=== PATIENT | female | born 1945 | race Caucasian/White ===

== ENCOUNTER 2017-10-06 13:19 | Outpatient (CLI) | payer MEDICARE, BC ==
[2017-10-06 18:10] LABS: CALCIUM 8.9 mg/dL (8.5-10.3); CREATININE 0.7 mg/dL (0.4-1.0)
== END 2017-10-06 13:20 | disposition home or self-care (01) ==
LOC: LAB.F 13:19
PROVIDERS: ATTEND Family Medicine
DX: E87.6 Hypokalemia (principal)
CPT/HCPCS: 36415; 80048

== ENCOUNTER 2022-08-08 12:42 | Emergency (ER) | payer MEDICARE, BC ==
[2022-08-08] MEDS ORDERED: MECLIZINE 12.5 MG TABLET PO STA (14:15)
[2022-08-08 14:17] LABS: BASOPHILS % (AUTO) 0.4 %; EOSINOPHILS # (AUTO) 0.5 10^3/uL (0.0-0.7); HGB - HEMOGLOBIN 13.5 g/dL (12.0-16.0); LYMPHOCYTES # (AUTO) 1.7 10^3/uL (1.5-3.5); LYMPHOCYTES % (AUTO) 16.4 %; MEAN CORPUSCULAR HEMOGLOBIN 28.7 pg (27.0-31.0); MEAN CORPUSCULAR HGB CONC 31.4 g/dL (32.0-36.0); MEAN CORPUSCULAR VOLUME 91.3 fL (81.0-99.0); MEAN PLATELET VOLUME 9.3 fL (7.9-10.8); MONOCYTES # (AUTO) 0.7 10^3/uL (0.0-1.0); MONOCYTES % (AUTO) 6.5 %; NEUTROPHILS # (AUTO) 7.3 10^3/uL (1.5-6.6); NEUTROPHILS % (AUTO) 71.3 %; PLT - PLATELET COUNT 398 10^3/uL (130-450); RED BLOOD COUNT 4.71 10^6/uL (4.20-5.40); RED CELL DISTRIBUTION WIDTH 13.8 % (12.0-15.0); WHITE BLOOD COUNT 10.3 x10^3/uL (4.8-10.8)
--- NOTE | 2022-08-08 14:17 | ED Physician Documentation ---
History of Present Illness - Stated complaint Stated Complaint: DIZZY, LIGHTHEADED - Chief complaint Chief Complaint: Neuro - History obtained from History obtained from: Patient - Additonal information Additional information: 77-year-old woman with hypertension and hypercholesterolemia presents with vertigo. It started early yesterday and is much better today. Today she feels more lightheaded. It is worse with rotation of the head. She had never had vertigo before this. Today she only has vertigo if she rotates her head. She feels tingling In the fingers of both hands. PD PAST MEDICAL HISTORY - Present Medications Home Medications: Ambulatory Orders Medication Instructions Recorded Confirmed Meclizine HCl [Motion Sickness] 25 mg PO Q6H PRN #20 tablet 08/08/22 - Allergies Allergies/Adverse Reactions: Allergies Allergy/AdvReac Type Severity Reaction Status Date / Time Penicillins Allergy Hives Verified 08/08/22 13:26 povidone-iodine Allergy Rash Verified 08/08/22 13:26 [From Betadine] Sulfa (Sulfonamide Allergy Unknown Verified 08/08/22 13:26 Antibiotics) PD ED PE NORMAL - Vitals Vital signs reviewed: Yes - General General: Alert and oriented X 3, No acute distress - HEENT HEENT: PERRL, EOMI - Neck Neck: Supple, no meningeal sign, No bony TTP - Cardiac Cardiac: RRR, No murmur - Respiratory Respiratory: No respiratory distress, Clear bilaterally - Abdomen Abdomen: Non tender - Back Back: No CVA TTP, No spinal TTP - Derm Derm: Normal color, Warm and dry - Neuro Neuro: Alert and oriented X 3, 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 No nystagmus on my examination but she has no vertigo at this point in time. NIH stroke scale of 0.) Eye Opening: Spontaneous Motor: Obeys Commands Verbal: Oriented GCS Score: 15 Results - Vitals Vitals: Vital Signs - 24 hr 08/08/22 08/08/22 08/08/22 13:22 15:25 16:13 Temperature 36.5 C Heart Rate 78 72 80 Respiratory 18 20 15 Rate Blood Pressure 150/74 H 148/70 H 152/76 H O2 Saturation 95 99 99 Oxygen O2 Source Room air - EKG (time done) 1453 Rate: Rate (enter#) (70) Rhythm: NSR Savannah: LAD (borderline) Intervals: Normal MS QRS: Normal Ischemia: Non specific changes. No: ST elevation c/w ischemia, ST depression - Labs Labs: Laboratory Tests 08/08/22 08/08/22 08/08/22 14:01 14:01 14:01 WBC 10.3 RBC 4.71 Hgb 13.5 Hct 43.0 MCV 91.3 MCH 28.7 MCHC 31.4 L RDW 13.8 Plt Count 398 MPV 9.3 Neut # (Auto) 7.3 H Lymph # (Auto) 1.7 Howard # (Auto) 0.7 Eos # (Auto) 0.5 Baso # (Auto) 0.0 Absolute Nucleated RBC 0.00 Nucleated RBC % 0.0 VBG pH 7.406 VBG pCO2 46.8 VBG pO2 25.7 VBG HCO3 28.7 H VBG Total CO2 30.2 H VBG O2 Saturation 48.3 L VBG Base Excess 3.3 H Sodium 135 Potassium 3.6 Chloride 96 L Carbon Dioxide 29 Anion Gap 10.0 BUN 18 Creatinine 0.7 Estimated GFR (MDRD) 82 L Glucose 109 H Calcium 9.5 Total Bilirubin 0.9 AST 21 ALT 23 Alkaline Phosphatase 106 Total Protein 7.4 Albumin 4.1 Globulin 3.3 Albumin/Globulin Ratio 1.2 Lipase 48 - Rads (name of study) CT Head- NAD Radiology: Final report received, EMP read indepedently PD Medical Decision Making - ED course ED course: 77-year-old woman with apparently peripheral vertigo although she does have risk factors for CVA. That said there is no clinical evidence of CVA. CT of the head is unremarkable. After the administration of meclizine she felt better. CBC reviewed and normal. Venous blood gas reviewed and normal. CMP reviewed and normal. Departure - Departure Disposition: Home, Self Care Clinical Impression: Vertigo Condition: Good Record reviewed to determine appropriate education?: Yes Instructions: Meclizine, ED Vertigo Unspecified Prescriptions: Meclizine HCl [Motion Sickness] 25 mg PO Q6H PRN #20 tablet PRN Reason: Dizziness Comments: Call your doctor to arrange a follow-up appointment, make the next available appointment. In the interim, return anytime if worse or if new symptoms develop. Discharge Date/Time: 08/08/22 16:14
[2022-08-08 14:20] LABS: VBG PCO2 46.8 mmHg (41-51); VBG PH 7.406 (7.31-7.41); VBG PO2 25.7 mmHg (25-47)
[2022-08-08 14:21] LABS: VBG BASE EXCESS 3.3 mmol/L (-2 - +2); VBG HCO3 28.7 mmol/L (23-28); VBG OXYGEN SATURATION 48.3 % (60-80); VBG TOTAL CO2 30.2 mmol/L (24-29)
[2022-08-08 14:31] LABS: ALBUMIN 4.1 g/dL (3.2-5.5); ALBUMIN/GLOBULIN RATIO 1.2 (1.0-2.2); BILIRUBIN,TOTAL 0.9 mg/dL (0.2-1.0); CALCIUM 9.5 mg/dL (8.5-10.3); CREATININE 0.7 mg/dL (0.4-1.0); POTASSIUM 3.6 mmol/L (3.5-5.0); TOTAL PROTEIN 7.4 g/dL (6.7-8.2)
--- NOTE | 2022-08-08 15:49 | CT Report ---
PROCEDURE: HEAD WO INDICATIONS: vertigo TECHNIQUE: Noncontrast 4.5 mm thick angled axial sections acquired from the foramen magnum to the vertex. For r adiation dose reduction, the following was used: automated exposure control, adjustment of mA and/or kV according to patient size. COMPARISON: None. FINDINGS: Image quality: There is streak artifact seen through the skull base. CSF spaces: Basal cisterns are patent. No extra-axial fluid collections. Ventricles are normal in size and shape. Brain: No midline shift. No intracranial masses or hemorrhage. Carmichael-white matter interface is norm al. Skull and face: Calvarium and visualized facial bones are intact, without suspicious lesions. Sinuses: Visualized sinuses and mastoids are clear. Moderate rightward nasal septal deviation is in cidentally noted. IMPRESSION: Intracranial study within normal limits for age, without a cause of the patient's presen ting symptoms identified. Reviewed by: Pj Castañeda MD on 08/08/2022 2:47 PM [facility] Approved by: Pj Castañeda MD on 08/08/2022 2:47 PM [facility] Station ID: [id number]
[2022-08-08 16:14] VITALS: BP 152/76
== END 2022-08-08 16:14 | disposition home or self-care (01) ==
LOC: ED 12:42
DX: R42 Dizziness and giddiness (principal)
CPT/HCPCS: 36415; 70450; 80053; 82803; 83690; 85025; 93005; 99284; A9270

== ENCOUNTER 2022-12-24 08:23 | Outpatient (CLI) | payer MEDICARE, BC ==
--- NOTE | 2022-12-24 08:57 | XRAY Report ---
PROCEDURE: Knee 3 View RT INDICATIONS: RIGHT KNEE CONTUSION TECHNIQUE: 3 views of the right knee(s) were acquired. COMPARISON: None. FINDINGS: Bones: No fractures or dislocations. No suspicious bony lesions. Moderate to severe tricompartmen eron arthritic change most anteromedially Soft tissues: No knee joint effusion. No suspicious soft tissue calcifications or masses. IMPRESSION: Tricompartmental arthritic change. No visualized acute fracture or dislocation. However, occult injur y cannot be excluded. Recommend short interval imaging follow-up in 7-10 days as clinically indicated for additional evaluation. Femoral Reviewed by: Jana Joyner MD on 12/24/2022 8:56 AM PDT Approved by: Jana Joyner MD on 12/24/2022 8:56 AM PDT Station ID: [id number]
== END 2022-12-24 23:59 | disposition home or self-care (01) ==
LOC: DI.S 08:23
PROVIDERS: ATTEND Physician Assistant Medical
DX: M17.11 Unilateral primary osteoarthritis, right knee (principal)

== ENCOUNTER 2022-12-26 11:49 | Emergency (ER) | payer MEDICARE, BC ==
[2022-12-26 12:02] VITALS: BP 152/114
--- NOTE | 2022-12-26 12:17 | ED Physician Documentation ---
History of Present Illness - Stated complaint Stated Complaint: RT KNEE PX - Chief complaint Chief Complaint: Ext Problem - Additonal information Additional information: 77-year-old female presents to the emergency department for evaluation of" excruciating" knee pain. States that she has a known history of tricompartmental arthritis. On November 30 her orthopedic physician through the [facility] injected the knee with cortisol. She states that she was doing well until she had a ground-level fall onto the knee the last week of November. Since then she has been having increasing pain in the knee. She is also noticed some generalized swelling around the knee as well as some mild swelling and redness of the lower leg. She did go to a local walk-in clinic on 24 November. She had an x-ray completed that showed pretty significant tricompartmental arthritis. For concerns of the redness of the skin in the lower leg she was started on doxycycline. Patient reports that her pain is worse today and she is concerned she could have a blood clot. There have been no fevers. She is not anticoagulated. Review of Systems Constitutional: denies: Fever Cardiac: reports: Reviewed and negative Respiratory: reports: Reviewed and negative Musculoskeletal: reports: Joint pain, Joint swelling Neurologic: reports: Reviewed and negative PD PAST MEDICAL HISTORY - Present Medications Home Medications: Ambulatory Orders Medication Instructions Recorded Confirmed Meclizine HCl [Motion Sickness] 25 mg PO Q6H PRN #20 tablet 08/08/22 oxyCODONE [Roxicodone] 5 mg PO TID PRN #20 tablet 12/26/22 - Allergies Allergies/Adverse Reactions: Allergies Allergy/AdvReac Type Severity Reaction Status Date / Time Penicillins Allergy Hives Verified 08/08/22 13:26 povidone-iodine Allergy Rash Verified 08/08/22 13:26 [From Betadine] Sulfa (Sulfonamide Allergy Unknown Verified 08/08/22 13:26 Antibiotics) PD ED PE EXPANDED - General General: Alert, No acute distress - Extremities Extremities: Right knee (Mild swelling of the right knee with some superficial erythema. No palpable effusion. Erythema does extend slightly down the anterior leg. No posterior calf tenderness. 2+ DP pulse. Quite antalgic gait though no micromotion tenderness.) Results - Vitals Vitals: Vital Signs - 24 hr 12/26/22 11:56 Temperature 98.1 C H Heart Rate 97 Respiratory 16 Rate Blood Pressure 152/114 H O2 Saturation 97 Oxygen O2 Source Room air - Labs Labs: Laboratory Tests 12/26/22 12/26/22 12/26/22 12:22 12:22 12:22 WBC 7.8 RBC 3.96 L Hgb 11.5 L Hct 36.3 L MCV 91.7 MCH 29.0 MCHC 31.7 L RDW 13.9 Plt Count 428 MPV 8.7 Neut # (Auto) 5.4 Lymph # (Auto) 1.3 L Swift # (Auto) 0.7 Eos # (Auto) 0.3 Baso # (Auto) 0.0 Absolute Nucleated RBC 0.00 Nucleated RBC % 0.0 ESR 42 H Sodium 140 Potassium 3.5 Chloride 107 Carbon Dioxide 26 Anion Gap 7.0 BUN 17 Creatinine 0.6 Estimated GFR (MDRD) 97 Glucose 113 H Calcium 9.3 Total Bilirubin 0.5 AST 16 ALT 19 Alkaline Phosphatase 109 C-Reactive Protein 5.7 H Total Protein 6.8 Albumin 3.5 Globulin 3.3 Albumin/Globulin Ratio 1.1 Lipase 37 - Rads (name of study) US DVT Right leg Relevant Findings:: Final report received PD Medical Decision Making - ED course Complexity details: reviewed results, re-evaluated patient, d/w patient ED course: 77-year-old female presents emergency department for evaluation of right knee pain. She states that she has a history of severe arthritis in the knee and on November 30 she did have a cortisone injection in the knee by her orthopedic doctor. About 10 days later she had a fall directly on the knee and since then has been having increasing pain. She went to a local walk-in clinic 2 days ago because she developed some swelling around the knee as well as some very superficial redness of the knee and anterior leg. She was started on doxycycline. No improvement in pain. Here in the emergency department she does have an antalgic gait. However no micromotion tenderness in the joint is not stiff. Here in the ER she has no fevers. I did obtain a CBC, electrolytes CRP and sedimentation rate. Per my interpretation no leukocytosis. She does have a mild CRP and sedimentation rate elevation. I did query if this could be an infectious etiology. I did attempt arthrocentesis at the bedside but I was unsuccessful as the joint is quite arthritic. However subsequently I do not believe that she has an arthritic joint given the lack of leukocytosis or micromotion tenderness. Patient was concerned she could have a DVT in the leg and an ultrasound was performed that showed no evidence of deep vein thrombosis though she does have a popliteal cyst. Subsequently she is going to be discharged home. The recommendation is going to be to follow closely with her orthopedics doctor. Should her symptoms acutely worsen she will return to the emergency department. Departure - Departure Disposition: Home, Self Care Clinical Impression: Arthritis of right knee Condition: Serious Record reviewed to determine appropriate education?: Yes Prescriptions: oxyCODONE [Roxicodone] 5 mg PO TID PRN #20 tablet PRN Reason: Pain Comments: Sara you were seen today because you have been having increasing pain in your right knee. The ultrasound completed at the bedside does not show a DVT. You do have a cyst behind your knee, this is called to Goodson's cyst and is common. There is no specific treatment required for this and I do not believe that is contributing to your symptoms. The x-ray completed 2 days ago of your knee does show fairly severe arthritis. I did obtain labs today which showed a normal white blood cell count elevation. You do have an elevated CRP and sedimentation rate but this is often seen in a rthritis. We did attempt to do an arthrocentesis of the right knee but we were unable to get into the joint. This is a difficult procedure in the ER because of your severe arthritis. However I have lower suspicion that there is infection within the joint as you do not have fevers or white count elevation. You also do not have a stiff joint or any worrisome pain when passively moved. It is important you discuss this ED visit with your orthopedic doctor. I am sending a limited prescription for oxycodone and a pain medication to the [facility] in [place]. Please return to the ER if you have any severe swelling any fevers or worsening symptoms. I do recommend that you use a walker when getting around as that will help reduce the use of the knee and may improve pain. Discharge Date/Time: 12/26/22 14:08
[2022-12-26 12:30] LABS: BASOPHILS % (AUTO) 0.4 %; EOSINOPHILS # (AUTO) 0.3 10^3/uL (0.0-0.7); EOSINOPHILS % (AUTO) 4.3 %; HCT - HEMATOCRIT 36.3 % (37.0-47.0); HGB - HEMOGLOBIN 11.5 g/dL (12.0-16.0); LYMPHOCYTES # (AUTO) 1.3 10^3/uL (1.5-3.5); MEAN CORPUSCULAR HGB CONC 31.7 g/dL (32.0-36.0); MEAN CORPUSCULAR VOLUME 91.7 fL (81.0-99.0); MEAN PLATELET VOLUME 8.7 fL (7.9-10.8); MONOCYTES # (AUTO) 0.7 10^3/uL (0.0-1.0); MONOCYTES % (AUTO) 8.6 %; NEUTROPHILS # (AUTO) 5.4 10^3/uL (1.5-6.6); NEUTROPHILS % (AUTO) 69.3 %; PLT - PLATELET COUNT 428 10^3/uL (130-450); RED BLOOD COUNT 3.96 10^6/uL (4.20-5.40); RED CELL DISTRIBUTION WIDTH 13.9 % (12.0-15.0); WHITE BLOOD COUNT 7.8 x10^3/uL (4.8-10.8)
[2022-12-26 12:50] LABS: ALBUMIN 3.5 g/dL (3.2-5.5); ALBUMIN/GLOBULIN RATIO 1.1 (1.0-2.2); BILIRUBIN,TOTAL 0.5 mg/dL (0.2-1.0); CALCIUM 9.3 mg/dL (8.5-10.3); CREATININE 0.6 mg/dL (0.4-1.0); CRP - C-REACTIVE PROTEIN 5.7 mg/dL (0-1.0); POTASSIUM 3.5 mmol/L (3.5-5.0); TOTAL PROTEIN 6.8 g/dL (6.7-8.2)
[2022-12-26] MEDS ORDERED: lidocaine 1% 20 ML MDV SUBQ ONE (13:08)
--- NOTE | 2022-12-26 13:15 | Ultrasound Report ---
PROCEDURE: Duplex Ext Veins Right INDICATIONS: right leg swelling, knee swelling; ? DVT TECHNIQUE: Real-time imaging, as well as color and pulse Doppler interrogation, were performed of the lower extr emity deep veins from the inguinal ligament to the popliteal fossa. COMPARISON: None. FINDINGS: The deep veins are normally compressible, and free of intraluminal thrombus. Color and pu lse Doppler demonstrate normal phasic intraluminal flow. There is normal augmentation response to di stal compression maneuver. A Goodson's cyst is present in the right popliteal fossa measuring 3 cm. IMPRESSION: 1. No DVT in the right leg. 2. Goodson's cyst. Reviewed by: Rene Mcnulty on 12/26/2022 12:14 PM [facility] Approved by: Rene Mcnulty on 12/26/2022 12:14 PM [facility] Station ID: [id number]
[2022-12-26] MEDS ORDERED: oxyCODONE 5 MG TABLET PO STA (13:53)
== END 2022-12-26 14:08 | disposition home or self-care (01) ==
LOC: ED 11:49
DX: M17.11 Unilateral primary osteoarthritis, right knee (principal)
CPT/HCPCS: 20610; 36415; 80053; 83690; 85025; 85651; 86140; 93971; 99284; A9270

== ENCOUNTER 2023-01-26 11:59 | Outpatient (CLI) | payer MEDICARE, BC ==
--- NOTE | 2023-01-26 16:48 | Ultrasound Report ---
PROCEDURE: Ext Limited Non Vascular INDICATIONS: KNEE PAIN TECHNIQUE: Real-time scanning was performed of the right knee, with image documentation. COMPARISON: None. FINDINGS: There is a Goodson's cyst measuring 2.4 x 0.9 x 1.6 cm. IMPRESSION: Goodson's cyst. Reviewed by: Fior Barrera MD on 01/26/2023 4:47 PM PDT Approved by: Fior Barrera MD on 01/26/2023 4:47 PM PDT Station ID: [id number]
== END 2023-01-26 12:00 | disposition home or self-care (01) ==
LOC: DI 11:59
PROVIDERS: ATTEND Internal Medicine
DX: M71.21 Synovial cyst of popliteal space [Baker], right knee (principal); Z13.820 Encounter for screening for osteoporosis; Z78.0 Asymptomatic menopausal state

== ENCOUNTER 2023-01-26 12:00 | Outpatient (CLI) | payer MEDICARE, BC ==
--- NOTE | 2023-01-27 00:43 | DEXA Report ---
PROCEDURE: Dexa Spine and/or Hip INDICATIONS: POST MENOPAUSAL TECHNIQUE: Dual energy x-ray absorptiometry (DXA) was performed on a American Board [employer] Addiction Medicine (ABAM) System. Regions measur ed are the AP Spine, femoral neck, and if needed forearm. COMPARISON: None FINDINGS: Lumbar Spine: Bone Mineral Density 1.279 g/cm/cm,T score 0.8. Left Femoral Neck: Bone Mineral Density 0.886 g/cm/cm, T score -1.0. (T score greater or equal to -1.0: NORMAL) (T score from -1.1 to -2.4: OSTEOPENIA) (T score less than or equal to -2.5 to: OSTEOPOROSIS) Impression: By WHO criteria, this patient has normal bone density. Patients with diagnosis of osteoporosis or osteopenia should have regular bone mineral density assess ment. For those eligible for Medicare, routine testing is allowed once every 2 years. Testing frequ ency can be increased for patients who have rapidly progressing disease or for those who are receivin g medical therapy to restore bone mass. Reviewed by: Lorrie Alfred MD on 01/27/2023 12:42 AM PDT Approved by: Lorrie Alfred MD on 01/27/2023 12:42 AM PDT Station ID: [id number]
== END 2023-01-26 12:01 | disposition home or self-care (01) ==
LOC: DI 12:00
PROVIDERS: ATTEND Internal Medicine
DX: Z13.820 Encounter for screening for osteoporosis (principal); Z78.0 Asymptomatic menopausal state

== ENCOUNTER 2023-12-21 09:29 | Outpatient (CLI) | payer MEDICARE, BC ==
[2023-12-21 09:48] LABS: BASOPHILS % (AUTO) 0.5 %; EOSINOPHILS # (AUTO) 0.3 10^3/uL (0.0-0.7); EOSINOPHILS % (AUTO) 3.7 %; HCT - HEMATOCRIT 38.4 % (37.0-47.0); LYMPHOCYTES # (AUTO) 1.6 10^3/uL (1.5-3.5); LYMPHOCYTES % (AUTO) 20.6 %; MEAN CORPUSCULAR HEMOGLOBIN 27.8 pg (27.0-31.0); MEAN CORPUSCULAR HGB CONC 31.3 g/dL (32.0-36.0); MEAN CORPUSCULAR VOLUME 89.1 fL (81.0-99.0); MEAN PLATELET VOLUME 8.8 fL (7.9-10.8); MONOCYTES # (AUTO) 0.6 10^3/uL (0.0-1.0); MONOCYTES % (AUTO) 7.1 %; NEUTROPHILS # (AUTO) 5.3 10^3/uL (1.5-6.6); PLT - PLATELET COUNT 370 10^3/uL (130-450); RED BLOOD COUNT 4.31 10^6/uL (4.20-5.40); RED CELL DISTRIBUTION WIDTH 13.7 % (12.0-15.0); WHITE BLOOD COUNT 7.8 x10^3/uL (4.8-10.8)
[2023-12-21 10:03] LABS: ALBUMIN 3.7 g/dL (3.2-5.5); ALBUMIN/GLOBULIN RATIO 1.4 (1.0-2.2); ALKALINE PHOSPHATASE 108 IU/L (42-121); ALT ALANINE AMINOTRANSFERASE 19 IU/L (10-60); AST ASPARTATE AMINOTRANSFERASE 15 IU/L (10-42); BILIRUBIN,TOTAL 0.6 mg/dL (0.2-1.0); BUN - BLOOD UREA NITROGEN 19 mg/dL (6-20); CALCIUM 9.7 mg/dL (8.5-10.3); CARBON DIOXIDE - CO2 31 mmol/L (21-32); CHLORIDE 101 mmol/L (101-111); CHOL/HDL RATIO 5.7 (<4.4); CHOLESTEROL 278 mg/dL; CREATININE 0.6 mg/dL (0.6-1.3); GFR - MDRD 97 (>89); GLUCOSE 105 mg/dL (74-104); HDL CHOLESTEROL 49 mg/dL; LDL CHOLESTEROL,CALCULATED 163 mg/dL; LDL/HDL RATIO 3.3 (<4.4); POTASSIUM 3.8 mmol/L (3.5-4.5); SODIUM 139 mmol/L (135-145); TOTAL PROTEIN 6.3 g/dL (6.4-8.9); TRIGLYCERIDES 332 mg/dL (48-352); VLDL CHOLESTEROL 66 mg/dL
[2023-12-21 10:17] LABS: THYROID STIMULATING HORMONE 1.61 uIU/mL (0.34-5.60)
[2023-12-21 13:20] LABS: ESTIMATED AVERAGE GLUCOSE 105 mg/dL (70-100); HEMOGLOBIN A1c% 5.3 % (4.27-6.07)
== END 2023-12-21 09:30 | disposition home or self-care (01) ==
LOC: LAB 09:29
PROVIDERS: ATTEND Internal Medicine
DX: I10 Essential (primary) hypertension (principal); E78.2 Mixed hyperlipidemia; R63.5 Abnormal weight gain; R73.9 Hyperglycemia, unspecified
CPT/HCPCS: 36415; 80053; 80061; 83036; 83721; 84443; 85025

== ENCOUNTER 2024-02-10 15:17 | Outpatient (CLI) | payer MEDICARE, BC ==
--- NOTE | 2024-02-10 16:52 | XRAY Report ---
PROCEDURE: Foot 3+V BL (Weight Bearing) INDICATIONS: BILATERAL FOOT PAIN TECHNIQUE: 3 views of the bilateral feet were acquired. COMPARISON: None. FINDINGS: Bones: No fractures or dislocations. Bilateral pes planus. Bilateral tibiotalar degenerative arthrit is. Bilateral midfoot degenerative arthritis. No suspicious bony lesions. Soft tissues: No tibiotalar joint effusion. Achilles tendon appears normal. IMPRESSION: 1. No acute bony abnormality. 2. Bilateral pes planus, tibiotalar degenerative arthritis, and midfoot degenerative arthritis. Reviewed by: Casey Reese MD on 02/10/2024 4:51 PM PDT Approved by: Casey Reese MD on 02/10/2024 4:51 PM PDT Station ID: [id number]
== END 2024-02-10 15:18 | disposition home or self-care (01) ==
LOC: DI 15:17
PROVIDERS: ATTEND Podiatrist
DX: M19.071 Primary osteoarthritis, right ankle and foot (principal); M19.072 Primary osteoarthritis, left ankle and foot; M21.42 Flat foot [pes planus] (acquired), left foot; M21.41 Flat foot [pes planus] (acquired), right foot